=== PATIENT | female | born 1955 | race Asian ===

== ENCOUNTER 2025-02-02 10:32 | Emergency (ER) | payer MEDICARE ==
[2025-02-02 11:21] LABS: CAUTI Indications for Culture Dysuria,urgency,freq; Glucose, Urine (Dipstick) Negative (Negative); Leukocyte Small (Negative); Protein, Urine (Dipstick) Negative (Neg-Trace); Specific Gravity, Urine 1.010 (1.005-1.030); Urine Culture Reflex No No; WBC/HPF 0-3 HPF (0-3)
[2025-02-02 11:22] LABS: Hematocrit 40.2 % (36.0-47.0); Hemoglobin 13.9 g/dL (12.0-16.0); Red Blood Cell (RBC) Count 4.74 mill/uL (4.20-5.40); White Blood Cell (WBC) Count 5.9 10x3/uL (4.8-10.8)
[2025-02-02 11:23] LABS: Mean Corpuscular Hemoglobin 29.3 pg (27.0-31.0); Mean Corpuscular Volume 84.8 fl (78.0-98.0); Platelet Count 146 10x3/uL (130-400)
[2025-02-02 11:32] LABS: ALT (SGPT) 24 U/L (Less than 34); AST (SGOT) 34 U/L (11-34); Albumin 3.9 g/dL (3.1-4.5); Alkaline Phosphatase 72 U/L (40-110); Anion Gap 15 mmol/L (10-20); BUN (Urea Nitrogen) 6 mg/dL (9.8-20.1); Bilirubin, Total 0.5 mg/dL (0.3-1.2); Calc. Creatinine Clearance 0 mL/min (70-130); Calcium 8.6 mg/dL (7.8-10.44); Carbon Dioxide 22 mmol/L (23-31); Chloride 101 mmol/L (98-107); Globulin 3.1 g/dL (2.4-3.5); Glucose 110 mg/dL (80-115); Potassium 3.9 mmol/L (3.5-5.1); Sodium 134 mmol/L (136-145)
== END 2025-02-02 12:10 | disposition home or self-care (01) ==
LOC: NAV ERS 10:32
DX: J10.1 Influenza due to other identified influenza virus with other respiratory manifestations (principal); E78.00 Pure hypercholesterolemia, unspecified; Z79.899 Other long term (current) drug therapy
CPT/HCPCS: 71046; 80053; 81001; 85025; 87428; J7030